=== PATIENT | female | born 1995 | race Caucasian/White ===

== ENCOUNTER 2020-06-21 00:17 | Emergency (ER) | payer MEDICAID ==
[~2020-06-21] VITALS: Ht 167.6 cm; Wt 81.6 kg
[~2020-06-21 00:17] MED LIST: IBUP-1131 PO; PREN1TAB59 PO
--- NOTE | 2020-06-21 00:30 | NUR ---
ARRIVAL PT ARRIVED AMBULATORY TO ER 3 WITH C/O LEFT SHOULDER/NECK PAIN. PT STATES LEFT NECK/SHOULDER PAIN SINCE EARLIER IN THE DAY. DOES NOT RECALL ANY INJURIES. STATES FEELING "A SHOCKING PAIN FROM THE CENTER OF MY CHEST TO MY THROAT" AND THEN THE PAIN IN THE NECK/SHOULDER STARTED. EDP NOTIFIED OF ARRIVAL.
[2020-06-21 00:33] VITALS: BP 113/84
[2020-06-21] MEDS ORDERED: FLEXERIL PO STA (00:39)
[2020-06-21 00:40] VITALS: BP 113/84
[2020-06-21] MEDS ORDERED: FLEXERIL ONE (00:43)
--- NOTE | 2020-06-21 00:43 | ER.PDOC ---
General Chief Complaint: Requesting Medical Care Stated Complaint: SHOULDER PAIN Time seen by MD: 00:35 Source: patient Exam Limitations: no limitations History of Present Illness Initial Comments 25-year-old female presents to the emergency department for concern about chest pain. She has felt her heart slowing down over the past couple of days, unrelated to any new medications. Tonight she felt a tightness in the upper part of her chest radiating up into her neck, followed by left trapezius spasm and pain. She is concerned about her heart and would like to have it checked out. Occurred: this evening Where: home Severity: moderate Allergies: Coded Allergies: No Known Allergies (Unverified , 09/06/15) Home Meds Active Scripts Ibuprofen (IBUPROFEN) 800 Mg Tablet, 800 MG PO Q6HR PRN for CRAMPING/PAIN for 15 Days, #30 TABLET 1 Refill Prov:DESTINY SIMON MD 03/12/18 Reported Medications Vits W-Ca,Fe,Fa(<1MG) ( VITAMINS) 1 Each Tablet, 1 TAB PO DAILY for VITAMIN, #90 TAB 3 Refills 09/06/15 Past Medical History Medical History: other (post depression) Family History Significant Family History: no pertinent family hx Social History Smoking: cigarettes (vapes a little) Alcohol Use: none Drug Use: none Review of Systems Constitutional: denies no symptoms reported, denies see HPI, denies chills, denies diaphoresis, denies fever, denies malaise, denies weakness, denies other EENTM: denies no symptoms reported, denies see HPI, denies eye pain, denies blurred vision, denies tearing, denies double vision, denies ear pain, denies ear discharge, denies nose pain, denies nose congestion, denies throat pain, denies throat swelling, denies mouth pain, denies mouth swelling, denies other Respiratory: denies no symptoms reported, denies see HPI, denies cough, denies orthopnea, denies shortness of breath, denies stridor, denies wheezing, denies other Cardiovascular: chest pain Gastrointestinal: denies no symptoms reported, denies see HPI, denies abdominal pain, denies constipation, denies diarrhea, denies nausea, denies vomiting, denies other Musculoskeletal: muscle pain (left trapezius) Skin: denies no symptoms reported, denies see HPI, denies change in color, denies change in hair/nails, denies dryness, denies lesions, denies lumps, denies rash, denies other Psychiatric/Neurological: denies no symptoms reported, denies see HPI, denies anxiety, denies depressed, denies emotional problems, denies headache, denies numbness, denies paresthesia, denies pre-existing deficit, denies seizure, denies tingling, denies tremors, denies weakness, denies other All Other Systems: Reviewed and Negative Physical Exam General Appearance: Alert, No Apparent Distress Shoulder: nml inspection, full ROM, no dislocation, tenderness (left trapesius with spasm) Upper Extremities: uninjuried below shoulder Neuro: sensation nml, motor nml Vascular: no vascular compromise Skin: warm/dry Head/ENT: nml inspection, pharynx nml Neck/Back: non-tender, nml inspection, painless ROM Respiratory: chest non-tender, breath sounds nml CVS: reg rate & rhythm, heart sounds nml Abdomen: non-tender, no organomegaly Results/Orders Results/Orders Orders - JEFF GARCIA DO Ekg-Routine (06/21/20 00:39) Cyclobenzaprine Hcl (Flexeril) (06/21/20 00:39) Vital Signs Date Time Temp Pulse Resp B/P (MAP) Pulse Ox O2 Delivery O2 Flow Rate FiO2 06/21/20 00:40 98.1 61 17 113/84 (94) 97 Room Air 06/21/20 00:33 98.1 61 17 06/21/20 00:33 98.1 61 17 97 06/21/20 00:33 98.1 61 17 113/84 (94) 97 Room Air Administered Medications Medications (Trade) Dose Ordered Sig/[place] Route PRN Reason Start Time Stop Time Status Last Admin Dose Admin Cyclobenzaprine HCl (Flexeril) 10 mg STAT STAT PO 06/21/20 00:39 06/21/20 00:40 UNV 06/21/20 00:48 10 MG EKG/XRAY/CT/US EKG Comments: sinus bradycardia, VR 57, no acute STT changes ER DEPARTURE Departure Time of Disposition: 00:55 Disposition: 01 HOME, SELF-CARE Impression: Primary Impression: Non-cardiac chest pain Additional Impressions: Post depression Trapezius muscle spasm Esophageal spasm Condition: Improved Patient Instructions: Chest Pain (Nonspecific), Esophageal Spasm, Muscle Cramps, [id number]-pc-[id number] Referrals: PCP,UNKNOWN (PCP) PRIMARY CARE PROVIDER Additional Instructions: Take Prilosec 20 mg [id number]-[id number]-[id number] twice daily for 2 weeks, then take Prilosec 20 mg [id number]-[id number]-uzakqyz once daily. Take Pepcid 20 mg ybdw-yev-tbyqysy twice daily for 2 weeks. Then take Pepcid 20 mg [id number]-lyf-izoqznu once daily routinely. Maintain a strictly bland diet for the next several days. Take Flexeril as needed per prescription instructions if you continue to have trapezius spasm. Return to the emergency department if your symptoms are worse or for any other emergent concerns. Follow-up with your primary care physician this week. Duration or Time Spent with Pa: 30 min Justification of Admit/Observ Is this patient coming directl: No Admit to Inpatient (Expected t: No Place in Outpatient Status for: No Place patient in Same Day Surg: No Place patient in outpatient/CL: No *Level of Care/Services Provid: ER Admit Criteria Met: NO Justification Content JUSTIFICATION FOR ADMISSION Instructions 1. Open link in [employer] Browser. [email or web address] 2. Copy and paste data needed to meet the Admit Criteria. 3. Modify and document the needful data to meet the Admit Criteria. Problem Qualifiers JEFF GARCIA DO Jun 21, 2020 00:42
--- NOTE | 2020-06-21 00:47 | PCM.EKG ---
[facility] Test Date: 2020-06-21 Test Time: 00:40:03 Pat Name: ELVIA STERLING Department: Room: Gender: F Program Professional: thomas : 1995 Requested By: JEFF WILDE Order Number: [id number] Reading MD: Milena Wilde Measurements Intervals [place] Rate: 57 P: 9 CA: 129 QRS: 48 QRSD: 103 T: 39 QT: 454 QTc: 442 Interpretive Statements Sinus arrhythmia RSR' in V1 or V2, right VCD or RVH No previous ECG available for comparison Electronically Signed On 06-21-2020 19:30:43 GEOSPATIAL SCIENT[employer] by Milena Wilde Please click the below link to view image of tracing.
[2020-06-21] MEDS ORDERED: IBUP-1131 PO (00:55)
[2020-06-21 01:15] VITALS: BP 127/70
== END 2020-06-21 01:14 | disposition home or self-care (01) ==
LOC: ER 00:17
DX: K22.4 Dyskinesia of esophagus (principal); F53.0 Postpartum depression; R07.89 Other chest pain; F17.210 Nicotine dependence, cigarettes, uncomplicated; Z79.1 Long term (current) use of non-steroidal anti-inflammatories (NSAID)
CPT/HCPCS: 93005; 99283